=== PATIENT | male | born 1955 | race Caucasian/White ===

== ENCOUNTER 2017-06-04 07:23 | Day surgery (SDC) | payer OTHER ==
[~2017-06-04 07:23] MED LIST: GLYCOPYRROLATE INJ 0.2 MG/ML 2 ML VIAL As Ordered; LIDOCAINE 1% MDV 20ML VIAL As Ordered; PROPOFOL 200 MG/20 ML VIAL As Ordered
[2017-06-04] MEDS ORDERED: NS 1,000 ML IV (08:15)
[2017-06-04] MEDS ORDERED: PROPOFOL 200 MG/20 ML VIAL As Ordered (15:10)
== END 2017-06-04 09:29 | disposition home or self-care (01) ==
LOC: M OPP 07:23
DX: Z12.11 Encounter for screening for malignant neoplasm of colon (principal); K64.0 First degree hemorrhoids; E78.5 Hyperlipidemia, unspecified; M19.90 Unspecified osteoarthritis, unspecified site; M54.5 Low back pain; J45.909 Unspecified asthma, uncomplicated; Z87.81 Personal history of (healed) traumatic fracture; Z79.899 Other long term (current) drug therapy
CPT/HCPCS: G0121

== ENCOUNTER → 2017-11-14 | Outpatient (CLI) | payer OTHER | LOC: M CARPUL 07:52 | DX: E78.2 Mixed hyperlipidemia (principal); H90.2 Conductive hearing loss, unspecified; M54.5 Low back pain; Z79.899 Other long term (current) drug therapy | CPT/HCPCS: 93306 ==

== ENCOUNTER → 2018-06-27 | Outpatient (REF) | payer OTHER ==
[~2018-06-27] MED LIST changes: +ADV250INH INH; -GLYCOPYRROLATE INJ 0.2 MG/ML 2 ML VIAL As Ordered; -LIDOCAINE 1% MDV 20ML VIAL As Ordered; -PROPOFOL 200 MG/20 ML VIAL As Ordered
== END ==
LOC: M SFHCLERA 13:59
PROVIDERS: ATTEND Nurse Practitioner Family
DX: R19.7 Diarrhea, unspecified (principal)
CPT/HCPCS: 87507; G0463

== ENCOUNTER → 2022-07-29 | Outpatient (CLI) | payer MEDICARE, OTHER | LOC: M RAD 13:00 | PROVIDERS: ATTEND Internal Medicine | DX: R51.9 Headache, unspecified (principal); Z98.890 Other specified postprocedural states ==

== ENCOUNTER → 2022-08-07 | Outpatient (CLI) | payer MEDICARE, OTHER | LOC: M PLAIMG 06:42 | PROVIDERS: ATTEND Internal Medicine | DX: J01.30 Acute sphenoidal sinusitis, unspecified (principal); G93.89 Other specified disorders of brain; R51.9 Headache, unspecified ==

== ENCOUNTER 2023-10-04 05:55 | Emergency (ER) | payer MEDICARE, OTHER ==
[~2023-10-04] VITALS: Ht 175.3 cm; Wt 81.6 kg
[2023-10-04 06:41] LABS: BASO % 0.4 % (0.0-1.0); EOS # 0.1 10^3/uL (0.0-0.5); EOS % 0.5 % (0.0-3.0); HEMATOCRIT 45.8 % (42.0-52.0); HEMOGLOBIN 15.5 g/dl (13.5-17.5); LYMPH # 1.3 10^3/uL (1.5-5.0); LYMPH % 11.6 % (24.0-44.0); MEAN CORPUSCULAR HGB CONC 33.8 g/dl (32.0-36.5); MEAN CORPUSCULAR VOLUME 94.4 fl (80.0-96.0); MONO # 0.7 10^3/uL (0.0-0.8); MONO % 6.5 % (2.0-8.0); NEUTROPHILS # 8.9 10^3/uL (1.5-8.5); NEUTROPHILS % 80.5 % (36.0-66.0); PLATELET COUNT, AUTOMATED 256 10^3/uL (150-450); RED BLOOD COUNT 4.85 10^6/uL (4.30-6.10); WHITE BLOOD COUNT 11.1 10^3/uL (4.0-10.0)
[2023-10-04 06:46] LABS: APPEARANCE, URINE HAZY (CLEAR); BACTERIA, URINE AUTO NEGATIVE (NEGATIVE); BILIRUBIN, URINE AUTO NEGATIVE (NEGATIVE); BLOOD, URINE BLOOD 3+ (NEGATIVE); COLOR, URINE YELLOW (YELLOW); GLUCOSE, URINE (UA) AUTO NEGATIVE (NEGATIVE); KETONE, URINE AUTO NEGATIVE (NEGATIVE); LEUKOCYTE ESTERASE, URINE AUTO NEGATIVE (NEGATIVE); MUCUS, URINE SMALL (NEGATIVE); NITRITE, URINE AUTO NEGATIVE (NEGATIVE); PROTEIN, URINE AUTO NEGATIVE (NEGATIVE); RBC, URINE AUTO 94 /HPF (0-3); SPECIFIC GRAVITY URINE AUTO 1.026 (1.002-1.035); SQUAMOUS EPITHELIAL CELL UR AU 0 /HPF (0-6); WBC, URINE AUTO 0 /HPF (0-3)
[2023-10-04] MEDS: ONDANSETRON 4MG 2ML VIAL IV ONE (07:02)
[2023-10-04] MEDS: KETOROLAC 30 MG/ML 1ML VIAL IV ONE (07:02)
[2023-10-04 07:15] LABS: LIPASE 49 U/L (12-53)
[2023-10-04 07:17] LABS: ALBUMIN 4.1 G/DL (3.2-5.2); ALKALINE PHOSPHATASE 81 U/L (46-116); ALT/SGPT 39 U/L (7.0-40); AST/SGOT 32 U/L (<34); BILIRUBIN,DIRECT 0.1 MG/DL (<0.4); BILIRUBIN,TOTAL 0.8 MG/DL (0.3-1.2); BLOOD UREA NITROGEN 16 MG/DL (9-23); CALCIUM LEVEL 10.6 MG/DL (8.3-10.6); CARBON DIOXIDE LEVEL 27 MMOL/L (20-31); CHLORIDE LEVEL 107 MMOL/L (98-107); CREATININE FOR GFR 1.19 MG/DL (0.70-1.30); GLOMERULAR FILTRATION RATE > 60.0 (>49); GLUCOSE, FASTING 129 MG/DL (74-106); POTASSIUM SERUM 4.8 MMOL/L (3.5-5.1); SODIUM LEVEL 140 MMOL/L (136-145)
[2023-10-04 07:21] LABS: C REACTIVE PROTEIN QUANTITATIV < 0.40 MG/DL (<1.0)
[2023-10-04] MEDS: NS 1,000 ML IV ONE (08:09)
[2023-10-04 08:23] VITALS: TEMP 98.4
[2023-10-04] MEDS: TAMSULOSIN 0.4 MG CAP PO ONE (08:40)
[2023-10-04] MEDS: MORPHINE 2 MG/ML 1ML VIAL IV ONE (08:40)
[2023-10-04] MEDS ORDERED: KETO10TAB PO (11:20)
[2023-10-04] MEDS ORDERED: PERC5TAB12 PO (11:20)
[2023-10-04] MEDS ORDERED: ONDA-282 PO (11:20)
[2023-10-04] MEDS ORDERED: FLOM0.4C39 PO (11:20)
[2023-10-04 11:25] VITALS: BP 157/86; O2SAT 97
== END 2023-10-04 11:55 | disposition home or self-care (01) ==
LOC: M ED 05:55
DX: N13.30 Unspecified hydronephrosis (principal); N20.2 Calculus of kidney with calculus of ureter; Z79.899 Other long term (current) drug therapy
CPT/HCPCS: 74176; 80048; 80076; 81001; 83690; 85025; 86140; 87086; 96361; 96374; 96375; 99284; J1885; J2405

== ENCOUNTER → 2024-08-25 | Outpatient (CLI) | payer OTHER ==
[~2024-08-25] MED LIST changes: -ADV250INH INH; +ADVA1AER9 INH; +KETO10TAB PO; +ONDA-282 PO; +PERC5TAB12 PO; +TAMS-18 PO
== END ==
LOC: M RAD 09:36
PROVIDERS: ATTEND Internal Medicine
DX: N20.2 Calculus of kidney with calculus of ureter (principal); N13.30 Unspecified hydronephrosis